=== PATIENT | male | born 1960 | race Caucasian/White ===

== ENCOUNTER 2021-05-20 10:03 | Emergency (ER) | payer BC, SELFPAY ==
[2021-05-20 10:12] VITALS: BP 142/85; PULSE 88; RESP 16; TEMP 36.2; O2SAT 95
--- NOTE | 2021-05-20 10:23 | ED.URI ---
HPI - URI/Sore Throat General Chief Complaint: Upper Respiratory Infection Stated Complaint: Runny nose,Sore throat,Watery eyes Source: patient and RN notes reviewed Limitations: no limitations History of Present Illness HPI Narrative: The vaccinated patient, a non-smoker/nondrinker food production worker, presents with Raynaud's and cough. Patient states he has 1/2-week history of itchy runny eyes, nose and mild nonproductive cough. No fever, loss of taste/smell, S OB, rash, CP, vomiting/diarrhea. Symptoms are mild to moderate unimproved with OTC preparations like Sudafed Related Data Allergies Allergy/AdvReac Type Severity Reaction Status Date / Time No Known Allergies Allergy Verified 05/20/21 10:42 Review of Systems Review of Systems: The patient has been informed that they may have pre-hypertension or Hypertension based on a BP reading in the department. I recommend that the patient call the primary care provider listed on their discharge instructions or a physician of their choice this week to arrange follow up for further evaluation of possible pre-hypertension or Hypertension General/Constitutional: No weight loss,fever Eyes: N0: Redness, REPORTS discharge Ears/Nose/Throat: No: Epistaxis,ear discharge Respiratory: Denies: Hemoptysis Gastrointestinal: No Vomiting, Bleeding-rectal Skin: No Lumps, eruption Neurologic: No Focal Weakness,Sz Hematologic: Denies: Petechiae/Purpura Psychiatric: No: Suicida ideationl All Other Systems: Reviewed and Negative PMFSH Comments At time of signature, agree with nursing past medical, surgical, social and family history. There is no relevant family history pertinent to the presenting complaint Exam Narrative: General Appearance: Well appearing, Well nourished EYE: PERRLA, Conjunctiva sl injected Ears: Auditory canal normal, TM normal Nose: Rhinorrhea, Mucousal erythema Mouth/Throat: MM moist, Uvula midline, Pharyngeal erythema Neck: Supple, No adenopathy Respiratory: No respiratory distress, Breath sounds equal, Clear to auscultation Cardiovascular: RRR, No JVD Musculoskeletal: Non tender, Normal strength Skin: Warm, Dry Neurological: A&O x3, CN II-XII intact Psychiatric: Normal mood, Normal affect Course Vital Signs Vital signs: Vital Signs Temperature 97.2 F L 05/20/21 10:12 Pulse Rate 88 05/20/21 10:12 Respiratory Rate 16 05/20/21 10:12 Blood Pressure 142/85 H 05/20/21 10:12 Pulse Oximetry 95 05/20/21 10:12 Temperature 97.2 F L 05/20/21 10:12 Pulse Rate 88 05/20/21 10:12 Respiratory Rate 16 05/20/21 10:12 Blood Pressure 142/85 H 05/20/21 10:12 Pulse Oximetry 95 05/20/21 10:12 MDM - URI/Sore Throat Lab Data Labs: Lab Results 05/20/21 Range/Units 10:22 POC SARS CoV-2 Ag Negative (Negative) Discharge Plan Discharge Clinical Impression: Allergic rhinosinusitis Qualifiers: Allergic rhinitis trigger: unspecified Allergic rhinitis seasonality: unspecified Qualified Code(s): J30.9 - Allergic rhinitis, unspecified Patient Disposition: Home, Self-Care Condition: Stable Instructions: Allergic Rhinitis (ED) Additional Instructions: Also try OTC preparations like Flonase, antihistamines etc. Prescriptions: New Pataday Once Daily Relief 0.7 % drops 1 drp EACH EYE DAILY PRN (Reason: itching) Qty: 2.5 RF: 2 montelukast [Singulair] 10 mg tablet 10 mg PO QPM Qty: 20 RF: 3 prednisone 20 mg tablet 80 mg PO DAILY 3 Days Qty: 12 RF: 0 Other Ambulatory Orders: SARS-CoV-2 RNA, Qual RT-PCR (Routine) Location: Determined by Patient Ordered By: Jonny Phillips Follow-up/Referrals: PHYSICIAN,TRAINING ENGINEER [Primary Care Provider] -
== END 2021-05-20 10:51 | disposition home or self-care (01) ==
PROVIDERS: Emergency Provider Emergency Medicine
DX: J30.9 Allergic rhinitis, unspecified (principal); Z20.822 Contact with and (suspected) exposure to COVID-19
CPT/HCPCS: 87426; 99213; C9803; G0463